=== PATIENT | male | born 1985 | race Caucasian/White ===

== ENCOUNTER 2020-02-01 08:50 | Emergency (ER) | payer SELFPAY ==
[2020-02-01 08:53] VITALS: BP 154/96; PULSE 102; RESP 15; TEMP 36.7; O2SAT 98
--- NOTE | 2020-02-01 09:00 | DI.CT_ITS ---
EXAM: CT HEAD WO CLINICAL HISTORY: struck R upper forehead with hammer. TECHNIQUE: Imaging Protocol: Axial computed tomography images with coronal and sagittal reformatted images were created and reviewed COMPARISON: No exams were available for comparison FINDINGS: The ventricular system is normal in appearance. No evidence of acute intracranial hemorrhage, mass effect, or midline shift. The orbital structures are unremarkable. The temporal bone structures appear intact. Calvarium: Normal. Visualized Paranasal sinuses/Mastoids: Clear. IMPRESSION: Normal cranial CT. RADIATION DOSE DELIVERED: 772.49mGy.cm Total DLP 772.49mGy.cm Total DLP DATA REPOSITORY: All CT scans at this facility are submitted to the National Radiology Data Registry (NRDR) Dose Index Registry (DIR) with the [employer] ([employer]). RADIATION OPTIMIZATION: All CT scans at this facility use at least one of these dose optimization te chniques: automated exposure control; mA and/or kV adjustment per patient size (includes targeted exa ms where dose is matched to clinical indication); or iterative reconstruction.
--- NOTE | 2020-02-01 09:04 | ED.GENADUL_ITS ---
Discharge Plan Disposition Patient Disposition: HOME Condition: Stable Discharge Details Clinical Impression: Closed head injury with concussion Primary Care Provider: None,None ED Provider: Jim Dumont Home Meds and New Rx's Prescriptions: Continued ibuprofen 600 MG tablet 600 mg PO Q6H PRN (Reason: Pain) Qty: 20 RF: 0 Discharge Instructions Instructions: Concussion (ED), Head Injury (ED) Additional Instructions: CT imaging of your head was unremarkable. Tylenol and/or Motrin as directed for discomfort. Cool compresses as tolerated. Please watch for new or worsening symptoms and return to the ER for any concerns. I am providing you with a work note. I am also providing you the name and number of our local neurologist if you have persistent symptoms, otherwise I recommend reaching out your primary care provider for prompt outpatient reevaluation. Stand Alone Forms: Work Release Referrals: Belgica Dey MD [ [facility] STAFF PHYSICIAN] - Medical Decision Making 34-year-old gentleman with no significant past medical history presents after sustaining head injury earlier this morning while at work. Differential includes but not excluded to scalp contusion, skull fracture, concussion, intracranial hemorrhage. Patient appears well, nontoxic. He is neurologically intact. Will obtain CT of head without contrast for further evaluation of his symptoms. CT imaging of head without contrast read by radiology as negative. Discussed CT results with patient. Blood pressure and heart rate trending down nicely. Given his injury, unknown LOC, feeling tired, and inability to focus, likely mild concussion. We discussed cool compresses [id number] Tylenol and/or Motrin, and I will provide him with the name of our local neurologist for outpatient reevaluation. He did remain neurologically intact under my care. Patient will be given a work note for the next couple of days. Patient has no additional questions or concerns and is comfortable discharge. Medical Records Medical records reviewed: Yes I reviewed the patient's medical records. HPI General Mode of arrival: ambulatory . Date/Time Provider Initiated Documentation: 02/01/20 08:50 . Limitations to Documentation: no limitations . Information obtained by: patient . HPI Narrative: This is a 34-year-old gentleman with no significant past medical history presenting to the ER status post head injury. He reports approximately 1 AM this morning while at work, he was accidentally struck with a 10 pound hammer that was welted to 2 metal bars on the right side of his forehead. He reports that he was dazed and knocked to the ground, unsure if there is a true LOC. He was able to continue working until approximately 530 this morning. He reports moderate pain at the site of the injury but denies global headache, visual changes, neck pain, chest pain, shortness of breath, back pain abdominal pain, nausea, vomiting, numbness, tingling, weakness. He denies any other injury. Denies incontinence. He feels he is more sleepy than usual and having difficulty focusing. Related Data Home Medications Medication Instructions Recorded Confirmed ibuprofen 600 mg PO Q6H PRN #20 tab 11/20/17 02/01/20 Previous Rx's Medication Instructions Recorded ibuprofen 600 mg PO Q6H PRN #20 tab 11/20/17 Allergies Allergy/AdvReac Type Severity Reaction Status Date / Time Pertussis Vaccines AdvReac Unverified 02/01/20 09:00 General Stated Complaint: HeadInjury MERCEDES: 2 Review of Systems Constitutional Constitutional: Denies headache(s) and Denies weakness Eyes Eyes: Denies change in vision ENT Ears, Nose, Mouth, and Throat: Denies ear discharge, Denies headache(s) and Denies neck pain Cardiovascular Cardiovascular: Denies chest pain and Denies dyspnea Respiratory Respiratory: Denies dyspnea Gastrointestinal Gastrointestinal: Denies nausea and Denies vomiting Musculoskeletal Musculoskeletal: Denies neck pain, Denies numbness and Denies tingling Neurologic Neurologic: Denies headache(s), Denies numbness, Denies tingling and Denies weakness [facility] Social History Smoking/Tobacco Use Status: Current every day Tobacco Type: cigarettes Alcohol Intake: current Alcohol Intake frequency: a few times a month Drug use: Occasionally Substance use type: marijuana Do you feel safe at home: Yes Do you feel safe in your relationship?: Yes Exam Const General: cooperative, healthy appearing, comfortable and no acute distress Orientation: alert, awake and oriented x3 HENMT Head: no palpable skull fracture and normocephalic Head images: 1. Small contusion, swelling, tenderness. No crepitus. Skin is intact. Ears: external ears normal, TM's normal bilaterally and EAC's normal General nose exam: external nose normal Face and sinus: normal facial exam Mouth: moist mucous membranes Throat: posterior oropharynx normal Eyes General: appearance normal, both eyes and all related structures Alignment and Position: alignment normal Periorbital: periorbital findings normal Eyelids: eyelids normal Conjunctivae: conjunctivae normal Sclera: sclerae normal Cornea: corneas normal Pupils: PERRL EOM: EOM intact bilaterally Direct ophthalmoscopy: normal light reflex Neck Neck: normal visual inspection, full ROM, trachea midline, supple, nontender and other (No pain with axial loading) Chest Chest: normal palpation of entire chest wall Resp Effort & Inspection: normal respiratory effort and able to speak in complete sentences Auscultation: clear to auscultation bilaterally Cardio Rate: regular rate Rhythm: regular rhythm GI Palpation: soft and nontender Back/Spine/Pelvis Back: No back tenderness Skin General skin exam: no rashes or lesions noted Neuro General: patient alert, patient awake, patient oriented x3, moves all e xtremities and no focal motor deficits Cranial Nerves: CN's II-XI intact bilaterally Cognition: normal cognition Speech: speech normal Gait: normal gait Motor: muscle tone normal throughout, strength 5/5 throughout, no pronator drift, no movement abnormalities noted and no fasciculations Sensory Exam: no sensory deficits noted Coordination: [id number] test normal, [id number] test normal, Romberg test normal, Does not sway with eyes open and rapid alternating movement UE normal Extrem General: normal to inspection and full ROM Psych Appearance: grossly normal Mental Status: mental status grossly normal Course Vital Signs Vital signs: Vital Signs Temperature 36.7 C 02/01/20 08:53 Pulse 102 H 02/01/20 08:53 Respiratory Rate 15 02/01/20 08:53 Blood Pressure 154/96 H 02/01/20 08:53 Pulse Oximetry 98 02/01/20 08:53 Temperature 36.7 C 02/01/20 08:53 Temperature Source Temporal Artery Scan 02/01/20 08:53 Pulse 102 H 02/01/20 08:53 Respiratory Rate 15 02/01/20 08:53 Respiratory Effort Non-Labored 02/01/20 08:59 Blood Pressure 154/96 H 02/01/20 08:53 Blood Pressure Position Sitting 02/01/20 08:53 Pulse Oximetry 98 02/01/20 08:53 Oxygen Delivery Method Room Air 09/15/20 08:53 Oxygen Flow Rate 0 02/01/20 08:53 Pain Level 4 02/01/20 08:53
[2020-02-01 10:01] VITALS: BP 148/95; PULSE 89; RESP 16; TEMP 37; O2SAT 97
== END 2020-02-01 10:07 | disposition home or self-care (01) ==
PROVIDERS: Emergency Provider Physician Assistant
DX: S06.0X0A Concussion without loss of consciousness, initial encounter (principal); W27.0XXA Contact with workbench tool, initial encounter; Y99.0 Civilian activity done for income or pay
CPT/HCPCS: 99284; 70450